=== PATIENT | female | born 1955 | race American Indian/Alaskan Native ===

== ENCOUNTER 2017-08-26 09:54 | Emergency (ER) | payer MEDICARE ==
[2017-08-26 10:28] VITALS: BP 160/79
--- NOTE | 2017-08-26 13:31 | Emergency Department Report ---
HPI - General Chief Complaint: Upper Respiratory Infection Time Seen by Provider: 08/26/17 12:42 - HPI HPI: This is a 62-year-old patient came in reporting that she has flulike symptoms and reporting cough with white sputum, chest tightness with coughing, wheezing and fever and chills. Patient wishes to have an body ache and increased appetite and this is being going on for over 2 weeks but worsening over the last week. She says she started off with nasal drainage and congestion and has been taking [id number] medication but it's not working. She is able to tolerate oral liquids. Denies any nausea or vomiting. She is having a headache 7 out of 10 to the front of her head that's achy and this just started a couple days ago. She denies any difficulty breathing. Pain to the chest is only with coughing and and feels tight. Patient has no medical history. She said her headache is worse with cough and and she took Motrin for headache which relieved her headache but she cannot get rid of the cough . As reported on triage nurse that patient has difficulty breathing but patient said that she does not have any difficulty breathing. She is also complaining of occasional dizziness and plugged ear sensation. ED Past Medical Hx - Past Medical History Previous Medical History?: No - Surgical History Past Surgical History?: Yes Additional Surgical History: Neck surgery - Family History Family history: no significant - Social History Smoking Status: Never Smoker Substance Use Type: Alcohol - Medications Home Medications: Home Medications Medication Instructions Recorded Confirmed Last Taken Type ALBUTEROL Inhaler [ProAir HFA 2 puff IH QID PRN 30 Days #1 08/26/17 Unknown Rx Inhaler] inhalation Amoxicillin/K Clav Tab [Augmentin 1 tab PO Q12HR 10 Days #20 tab 08/26/17 Unknown Rx 875 mg] Cetirizine HCl [Zyrtec] 10 mg PO QAM 14 Days #14 tablet 08/26/17 Unknown Rx Fluticasone [Flonase] 1 spray NS QDAY 14 Days #1 bottle 08/26/17 Unknown Rx Ibuprofen [Motrin] 600 mg PO Q8H PRN 5 Days #15 tablet 08/26/17 Unknown Rx guaiFENesin/CODEINE [Robitussin AC] 5 ml PO Q8H PRN 10 Days #150 08/26/17 Unknown Rx oral.liqd methylPREDNISolone [Medrol Dose 4 mg PO QAM 6 Days #1 pack 08/26/17 Unknown Rx Samir] ED Review of Systems ROS: Stated complaint: CHEPE,DIZZY Other details as noted in HPI Comment: All other systems reviewed and negative Constitutional: chills, fever Eyes: denies: eye discharge ENT: congestion (Drainage, clear). denies: ear pain, throat pain Respiratory: cough, wheezing. denies: orthopnea, shortness of breath, SOB with exertion, SOB at rest, stridor Cardiovascular: chest pain (CP related too coughing). denies: palpitations, dyspnea on exertion, edema, syncope, paroxysmal nocturnal dyspnea Gastrointestinal: denies: abdominal pain, nausea, vomiting, diarrhea, constipation Musculoskeletal: myalgia. denies: back pain, joint swelling, arthralgia Skin: denies: rash Neurological: headache. denies: weakness, numbness, paresthesias, confusion, abnormal gait, vertigo Physical Exam - Physical Exam Vital Signs: Vital Signs 08/26/17 10:23 Temperature 99.0 F Pulse Rate 71 Respiratory 20 Rate Blood Pressure 160/79 O2 Sat by Pulse 99 Oximetry Vital Signs 08/26/17 08/26/17 08/26/17 10:23 13:43 14:14 Temperature 99.0 F Pulse Rate 71 Pulse Rate [ 88 88 Bilateral] Respiratory 20 Rate Respiratory 16 16 Rate [Bilateral ] Blood Pressure 160/79 O2 Sat by Pulse 99 Oximetry General: This is a [age] patient well-nourished well-developed in no acute distress. Physical Exam: Head: Normocephalic, atraumatic, no abrasion, no bruising and no contusion. Nose: Nasal mucosa congested with erythema and clear drainage. Maxillary and frontal sinus is nontender to palpate Ears: Nacho TM congested without erythema, bilateral EAC without any redness swelling or drainage. No mastoid bone tenderness Mouth: Moist, no pharyngeal exudate or erythema. Uvula is midline and oral airways patent. Eyes: Biateral pupils equal and reactive to light, bilateral EOM intact.. Bilateral conjunctival and sclera without injection, normal accommodation. No nystagmus Neck: Supple, No Cervical adenopathy, full range of motion and no C-spine tenderness. No swelling or tracheal deviation normal reflexes Cardiovascular: S1, S2. Regular rate and rhythm. No murmur. Capillary refill is less then 3 seconds. Lungs: Positive Wheezing to upper lung sevilla with dry cough .No rhonchi, or rales. No chest wall tenderness. No use of accessory muscle. In no increased work of breathing. MSK: Strength 5/5 in all extremities. No joint deformity or crepitus. Normal inspection. Full range of motion to all extremities. Abdomen: Non-tender to palpate in all quadrants, no guarding or rebound tenderness, positive bowel sounds in all quadrants. No CVA tenderness. No hernia, bruit or mass. No rigidity or distention. Extremities: No clubbing, cyanosis or edema. +2 pulses. No neurovascular compromise Skin: Clean, dry and intact. No rash or lesions. Neurological: GCS at 15, Pt is alert and oriented 3 speech is clear period. Bilateral hand transformation coach strong and equal. Normal gait. Negative Romberg and no pronator drift. Normal Reflexes. No motor or sensory deficit Back: No vertebral tenderness, no paraspinal tenderness. The bend over and touch his toes without any difficulties. Ambulates without any difficulties. Psych: Normal mood and behavior positive ED Course Vital Signs 08/26/17 10:23 Temperature 99.0 F Pulse Rate 71 Respiratory 20 Rate Blood Pressure 160/79 O2 Sat by Pulse 99 Oximetry Vital Signs 08/26/17 08/26/17 08/26/17 10:23 13:43 14:14 Temperature 99.0 F Pulse Rate 71 Pulse Rate [ 88 88 Bilateral] Respiratory 20 Rate Respiratory 16 16 Rate [Bilateral ] Blood Pressure 160/79 O2 Sat by Pulse 99 Oximetry - Reevaluation(s) Reevaluation #1: 08/26/17 14:43 Patient received Rocephin 1 g IM, Deltasone 60 mg by mouth, albuterol 5 mg and Atrovent 0.5 mg nebulized in emergency room. She says she feels better. Still awaiting chest x-ray. Reevaluation #2: 08/26/17 15:57 Patient's lung sounds are clear after nebulizer treatment and steroids. She is no longer having and chest pain. Patient hard score is 0 and she is at very low risk for cardiac disease. no need for EKG or lab work to rule out [place]. chest tightness was related to her bronchitis. ED Medical Decision Making - Radiology Data Radiology results: report reviewed Chest x-ray with no acute cardiopulmonary findings - Medical Decision Making ED course: He reports that she's been having nasal congestion and runny nose that started 2 weeks ago and a week ago she started having cough, chest pain and tightness with coughing and some white sputum. Also complaining of body ache and poor appetite over the last week. Patient said that she just wasn't feeling good and she's been taking [id number] medication is not working. She says she started having headache over the last 3 days and she's been taking Motrin which helped her headache but she still coughing. Patient also complaining of fever and chills. Physical findings for patient with recent upper lung sevilla, dry cough. Patient was given albuterol 0.5 mg and Atrovent 0.5 mg nebulizer which relieved her wheezing and she was not having any chest discomfort after nebulizer treatment. She is also having cough and and she said it's better after her treatment. She was also given Deltasone 60 mg by mouth in the emergency room. Her urinalysis came back with positive bacteria but negative leukocyte Estrace or white blood cell. Patient has bacteriuria and she is asymptomatic. Patient also has protein in her urine and ketones. I discussed with her that she's been a need to increase her fluid intake orally because she has mild dehydration and she'll need to follow up with her primary care physician because her urine had protein and she'll need to have a repeat urinalysis and also follow up bronchitis. Patient does have a primary care physician whose name is Dr. Dowell and she says she'll call tomorrow to schedule follow-up visit. I discussed with patient that her x-ray findings revealed that she did not have pneumonia and that she has bronchitis. I discussed with her diagnosis and treatment plan and she voiced understanding. Patient is at low risk for cardiac disease based on cardiac scoring therefore I did not see a need to do lab work or EKG. Her chest tightness was related to her wheezing and bronchitis which got better after she received nebulizer treatments. Patient and discharged home with prescription for Augmentin and she was instructed to take with yogurt or probiotics because it can cause diarrhea, albuterol HFA, Medrol Dosepak, Zyrtec,motrin, Flonase and guaifenesin with codeine which she can take up to 3 times a day as needed for cough. Does not drive and she is retired and I told her that cough medicine can cause drowsiness so she needs to not drive or operate heavy machinery while taking this medication. Patient discharged home to follow up with her primary care doctor on Thursday. Discharged home with family member in stable condition. Critical care attestation.: If time is entered above; I have spent that time in minutes in the direct care of this critically ill patient, excluding procedure time. ED Disposition Clinical Impression: Cough with congestion of paranasal sinus, Fever in adult, Bacteriuria, Mild dehydration, Ketonuria Acute bronchitis Qualifiers: Bronchitis organism: unspecified organism Qualified Code(s): J20.9 - Acute bronchitis, unspecified Disposition: - TO HOME OR SELFCARE Is pt being admited?: No Does the pt Need Aspirin: No Condition: Stable Instructions: Acute Bronchitis (ED) Additional Instructions: Please increase your fluid intake to 2-3 L of water and/or Cranberry juice Please call your primary care physician tomorrow to schedule an appointment for follow-up visit bronchitis. Take All medication as prescribed Do Not Drive or operate heavy machinery while taking guaifenesin with codeine as this medication causes drowsiness If you have symptoms worsens, please return to the emergency room Take Motrin as needed for fever and body aches. Prescriptions: ALBUTEROL Inhaler [ProAir HFA Inhaler] 2 puff IH QID PRN 30 Days #1 inhalation PRN Reason: Wheezing Amoxicillin/K Clav Tab [Augmentin 875 mg] 1 tab PO Q12HR 10 Days #20 tab Cetirizine HCl [Zyrtec] 10 mg PO QAM 14 Days #14 tablet Fluticasone [Flonase] 1 spray NS QDAY 14 Days #1 bottle guaiFENesin/CODEINE [Robitussin AC] 5 ml PO Q8H PRN 10 Days #150 oral.liqd PRN Reason: Cough Ibuprofen [Motrin] 600 mg PO Q8H PRN 5 Days #15 tablet PRN Reason: Pain methylPREDNISolone [Medrol Dose Samir] 4 mg PO QAM 6 Days #1 pack Referrals: PRIMARY CAREMD [Primary Care Provider] - 08/28/17 Forms: Accompanied Note
[2017-08-26] MEDS ORDERED: ROCEPHIN IM ONE (13:32)
[2017-08-26] MEDS ORDERED: DELTASONE PO ONE (13:32)
[2017-08-26] MEDS ORDERED: PROVENTIL IH ONE (13:32)
[2017-08-26] MEDS ORDERED: XYLOCAINE 1% MPF 5 mL INFILTRATI ONE (13:32)
[2017-08-26] MEDS ORDERED: ATROVENT IH ONE (13:32)
--- NOTE | 2017-08-26 15:17 | XRay Report ---
ROUTINE CHEST, TWO VIEWS: HISTORY: Cough, fever. The trachea, heart, mediastinal contour, lung sevilla and bony thorax are unremarkable. Lower cervical fusion changes are noted. IMPRESSION: Unremarkable chest x-ray.
[2017-08-26 15:37] LABS: Bacteria,Urine 1+ /HPF (Negative); Bilirubin,Urine NEG (Negative); Blood,Urine NEG (Negative); Ketones,Urine 20 mg/dL (Negative); Leukocyte Esterase,Urine NEG (Negative); Mucus,Urine 3+ /HPF; Nitrite,Urine NEG (Negative); Urobilinogen,Urine < 2.0 mg/dL (<2.0)
== END 2017-08-26 17:08 | disposition home or self-care (01) ==
LOC: ED 09:54
DX: J20.9 Acute bronchitis, unspecified (principal); R82.71 Bacteriuria; R82.4 Acetonuria; E86.0 Dehydration
CPT/HCPCS: 71020; 81001; 94640; 96372; 99284; J0696; J7512